=== PATIENT | female | born 1975 | race Caucasian/White ===

== ENCOUNTER 2020-12-14 08:03 | Emergency (ER) | payer OTHER, SELFPAY ==
--- NOTE | ~2020-12-14 | XR_ITS ---
EXAMINATION: XR finger 5th RT min 2V DATE: 12/14/2020 08:36 INDICATION: Right hand fifth digit injury and pain. TECHNIQUE: 5 views of right hand fifth digit were obtained. COMPARISON: None. FINDINGS: Bone alignment is normal. No fracture. Joint spaces are well maintained. IMPRESSION: 1. No fracture. Reviewed, dictated and finalized at location A. 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 No fracture.
[2020-12-14 08:11] VITALS: BP 128/76; PULSE 84; RESP 12; TEMP 37.8; O2SAT 100
--- NOTE | 2020-12-14 08:37 | ED.UPPEXIN ---
HPI - Extremity Injury (Upper) General Chief Complaint: Extremity Injury, Upper Stated Complaint: injured finger Source: patient and RN notes reviewed Limitations: no limitations History of Present Illness HPI narrative: The patient, who is right-handed, presents with right small finger pain. Patient states she jammed her finger while at work half a week ago on Friday while moving grocery carts. She complains of mild pain, and inability to bend -such that she has a swan-neck deformity at rest. Symptoms are mild, worse with motion better at rest; no other injury. Patient advised from its appearance that she will need hand doctor follow-up, and to wear a splint. She requests a work modification note. Related Data Home Medications Medication Instructions Recorded Confirmed levothyroxine [Synthroid] 125 mcg PO DAILY 12/14/20 12/14/20 mirabegron [Myrbetriq] 25 mg PO DAILY 12/14/20 12/14/20 tamsulosin [Flomax] 0.4 mg PO DAILY 12/14/20 12/14/20 Allergies Allergy/AdvReac Type Severity Reaction Status Date / Time Penicillins Allergy Anaphylaxis Verified 12/14/20 08:11 Review of Systems Review of Systems: Narrative: General/Constitutional: No weight loss,fever Eyes: N0: Redness,discharge Ears/Nose/Throat: No: Epistaxis,ear discharge Respiratory: Denies: Hemoptysis Gastrointestinal: No Vomiting, Bleeding-rectal Skin: No Lumps, eruption Neurologic: No Focal Weakness,Sz Hematologic: Denies: Petechiae/Purpura Psychiatric: No: Suicida ideationl All Other Systems: Reviewed and Negative PMFSH Comments At time of signature, agree with nursing past medical, surgical, social and family history. There is no relevant family history pertinent to the presenting complaint Exam Narrative: Exam Narrative: General Appearance: Well appearing, Conjunctiva clear Mouth/Throat: Normal appearing, Normal lips, Supple Respiratory: Airway patent, No respiratory distress Skin:finger held with distal flexion, middle phalanges extension; warm, Dry, Normal color MS-finger: Poor strength -very limited flexion/extension by pain, Tenderness -distally DIP joint, with mod-severe decreased ROM, Scant swelling , Other -no anterior drawer, no collateral laxity, ) Neurological: A&O x3, Normal affect Course Course Emergency Course: Films visualized, interpreted by radiologist, agree, normal see report Vital Signs Vital signs: Vital Signs Temperature 100.1 F H 12/14/20 08:11 Pulse Rate 84 12/14/20 08:11 Respiratory Rate 12 12/14/20 08:11 Blood Pressure 128/76 12/14/20 08:11 Pulse Oximetry 100 12/14/20 08:11 Temperature 100.1 F H 12/14/20 08:11 Pulse Rate 84 12/14/20 08:11 Respiratory Rate 12 12/14/20 08:11 Blood Pressure 128/76 12/14/20 08:11 Pulse Oximetry 100 12/14/20 08:11 Discharge Plan Discharge Clinical Impression: Deformity, finger, [place] neck Qualifiers: Laterality: right Qualified Code(s): M20.031 - [place]-neck deformity of right finger(s) Patient Disposition: Home, Self-Care Condition: Stable Instructions: Niesha Wood (ED) Additional Instructions: Wear splint, see hand specialist in follow-up Prescriptions: No Action tamsulosin [Flomax] 0.4 mg Capsule 0.4 mg PO DAILY RF: 0 levothyroxine [Synthroid] 125 mcg Tablet 125 mcg PO DAILY RF: 0 Myrbetriq 25 mg Tablet Extended Release 24 Hr 25 mg PO DAILY RF: 0 Follow-up/Referrals: Ozzie Kaufman MD [Physician] - UNKNOWN,DOCTOR [Primary Care Provider] - Stand Alone Forms: Work/School Release IP
== END 2020-12-14 09:30 | disposition home or self-care (01) ==
PROVIDERS: Emergency Provider Emergency Medicine
DX: M20.031 Swan-neck deformity of right finger(s) (principal); E03.9 Hypothyroidism, unspecified
CPT/HCPCS: 29130; 73140; 99213; G0463